=== PATIENT | female | born 1945 | race Two or more races ===

== ENCOUNTER 2021-08-24 11:22 | Outpatient (CLI) | payer OTHER | END 2021-08-24 13:58 | disposition home or self-care (01) | LOC: SONOGRAMA 11:22 | PROVIDERS: ATTEND Pathology Anatomic Pathology & Clinical Pathology | DX: E04.2 Nontoxic multinodular goiter (principal) ==

== ENCOUNTER 2022-08-02 11:42 | Outpatient (CLI) | payer OTHER | END 2022-08-02 11:44 | disposition home or self-care (01) | LOC: SONOGRAMA 11:42 | PROVIDERS: ATTEND Pathology Anatomic Pathology & Clinical Pathology | DX: E03.9 Hypothyroidism, unspecified (principal); E06.3 Autoimmune thyroiditis ==